=== PATIENT | male | born 1990 | race Caucasian/White ===

== ENCOUNTER 2019-03-02 09:10 | Emergency (ER) | payer BC ==
[~2019-03-02] VITALS: Ht 170.2 cm; Wt 176.9 kg
--- NOTE | 2019-03-02 09:25 | NUR ---
PT AMBULATORY FROM [facility] INTO ER 6. PT AA&OX4. SISTER AT BEDSIDE. PT GOWNED AND PLACED ON MONITOR. HE DENIES ANY CHEST PAIN HE SAYS HE JUST FEELS LIKE HE IS HAVING TROUBLE CATCHING HIS BREATH AND HIS THROAT FEELS FUNNY. SAYS IS MAKING HIS LOWER JAW TINGLE.
[2019-03-02] MEDS ORDERED: DEXAMETHASONE SOD PHOS 10 MG/1 ML VIAL IV ONE (09:45)
[2019-03-02 10:23] LABS: BASOPHILS % 0.2 % (0.0-1.0); EOSINOPHILS # (AUTO) 0.1 (0.0-0.4); EOSINOPHILS % 1.2 % (0.0-6.0); HEMATOCRIT 43.8 % (38.2-49.6); HEMOGLOBIN 14.8 g/dL (14.0-18.0); LYMPHOCYTES # (AUTO) 2.4 (1.0-3.2); LYMPHOCYTES % 29.6 % (18.0-39.1); MEAN CORPUSCULAR HEMOGLOBIN 27.4 pg (28-32); MEAN CORPUSCULAR HGB CONC 33.8 g/dL (31-35); MEAN CORPUSCULAR VOLUME 81.1 fL (81-99); MONOCYTES # (AUTO) 0.5 (0.2-0.8); MONOCYTES % 5.8 % (4.4-11.3); NEUTROPHILS % 62.6 % (38.7-80.0); PLATELET COUNT 244 x10e3/uL (140-360); RED CELL DISTRIBUTION WIDTH 12.3 % (11.7-14.4)
[2019-03-02 10:45] LABS: ALANINE AMINOTRANSFERASE 70 IU/L (0-55); ALBUMIN 3.6 g/dL (3.5-5.0); ALKALINE PHOSPHATASE 88 IU/L (40-150); ANION GAP 11.9 mmol/L (8-16); BLOOD UREA NITROGEN 14 mg/dL (7-26); BUN/CREATININE RATIO 18 (6-25); CALCIUM 9.2 mg/dL (8.4-10.2); CARBON DIOXIDE 25 mmol/L (22-29); CHLORIDE 106 mmol/L (98-107); CREATINE KINASE 101 IU/L (30-200); EST GLOMERULAR FILTRATION RATE > 60 ML/MIN (60-); GLUCOSE 108 mg/dL (74-118); LIPASE 33 U/L (8-78); MAGNESIUM 2.2 MG/DL (1.3-2.1); POTASSIUM 3.9 mmol/L (3.5-5.1); SODIUM 139 mmol/L (136-145)
[2019-03-02 11:17] LABS: BILIRUBIN,URINE NEGATIVE (NEGATIVE); CLARITY,URINE SL CLOUDY (CLEAR); COLOR,URINE YELLOW (YELLOW); KETONES,URINE NEGATIVE (NEGATIVE); LEUKOCYTE ESTERASE ,URINE NEGATIVE (NEGATIVE); NITRITE,URINE NEGATIVE (NEGATIVE); PROTEIN,URINE DIPSTICK NEGATIVE (NEGATIVE); URINE UROBILINOGEN 0.2 mg/dL (0.2 - 1)
[2019-03-02 11:19] LABS: BACTERIA,URINE RARE /HPF
--- NOTE | 2019-03-02 11:30 | Diagnostic Imaging Report ---
Examination: Single AP view of the chest. COMPARISON: None. INDICATION: Shortness of breath DISCUSSION: Lines/tubes: None. Lungs: The lungs are well inflated and clear. No pneumonia or pulmonary edema. Pleura: No pleural effusion or pneumothorax. Heart and mediastinum: The heart and the mediastinum are unremarkable. Bones and soft tissues: No acute bony abnormalities. IMPRESSION: 1. No acute cardiopulmonary abnormalities. Signed by: Dr. Narinder Espinosa M.D. on 03/02/2019 11:27 AM
--- NOTE | 2019-03-02 12:05 | NUR ---
PT SAYS HE IS FEELING A LITTLE BETTER. DR ANNE AT BEDSIDE GIVING PT RESULTS AND DIAGNOSIS. MY DISCHARGE INSTRUCTIONS GIVEN AFTERWARDS. PT AND SISTER BOTH VERB. UNDERSTANDING. FOLLOW UP CARE DISCUSSED. IV REMOVED AND PT BEING DISCHARGED TO HOME
[2019-03-02 14:21] VITALS: BP 138/81
== END 2019-03-02 12:08 | disposition home or self-care (01) ==
LOC: ER 09:10
DX: R00.2 Palpitations (principal); R07.89 Other chest pain; R42 Dizziness and giddiness; F41.1 Generalized anxiety disorder; F17.210 Nicotine dependence, cigarettes, uncomplicated
CPT/HCPCS: 36415; 71045; 80053; 81001; 82550; 82553; 83690; 83735; 84484; 85025; 87086; 93005; 99284; J1100

== ENCOUNTER 2023-08-14 02:26 | Inpatient (IN) | payer BC ==
[2023-08-14] VITALS (51 sets, daily range): BP systolic 121–179; BP diastolic 54–121; PULSE 49–89; RESP 3–26; TEMP 97.5–98.4; O2SAT 67–100
[~2023-08-14] VITALS: Ht 172.7 cm; Wt 194.1 kg
[2023-08-14] MEDS ORDERED: DIGOXIN INJ 0.25 MG/ML 2 ML AMP IV STA (03:05)
[2023-08-14 03:09] LABS: BASOPHILS % 0.4 % (0.0-1.0); EOSINOPHILS # (AUTO) 0.1 (0.0-0.4); EOSINOPHILS % 1.3 % (0.0-6.0); HEMATOCRIT 43.3 % (38.2-49.6); HEMOGLOBIN 14.9 g/dL (14.0-18.0); LYMPHOCYTES # (AUTO) 2.2 (1.0-3.2); LYMPHOCYTES % 30.6 % (18.0-39.1); MEAN CORPUSCULAR HEMOGLOBIN 28.8 pg (28-32); MEAN CORPUSCULAR HGB CONC 34.4 g/dL (31-35); MEAN CORPUSCULAR VOLUME 83.6 fL (81-99); MONOCYTES # (AUTO) 0.5 (0.2-0.8); NEUTROPHILS # (AUTO) 4.3 (2.1-6.9); PLATELET COUNT 233 x10e3/uL (140-360); RED BLOOD COUNT 5.18 x10e6/uL (4.3-5.7); RED CELL DISTRIBUTION WIDTH 12.3 % (11.7-14.4)
[2023-08-14] MEDS ORDERED: AMIODARONE HCL 150 MG/100 ML BAG IV ONE (03:15)
[2023-08-14 03:34] LABS: ALANINE AMINOTRANSFERASE 61 IU/L (0-55); ALBUMIN 3.6 g/dL (3.5-5.0); ALKALINE PHOSPHATASE 77 IU/L (40-150); ANION GAP 12.5 mmol/L (8-16); BILIRUBIN,TOTAL 0.8 mg/dL (0.2-1.2); BLOOD UREA NITROGEN 12 mg/dL (7-26); BUN/CREATININE RATIO 11 (6-25); CALCIUM 8.8 mg/dL (8.4-10.2); CARBON DIOXIDE 27 mmol/L (22-29); CHLORIDE 103 mmol/L (98-107); CREATININE, SERUM 1.12 mg/dL (0.72-1.25); EST GLOMERULAR FILTRATION RATE 90 ML/MIN (>=60); GLUCOSE 90 mg/dL (74-118); POTASSIUM 3.5 mmol/L (3.5-5.1); SODIUM 139 mmol/L (136-145); TOTAL PROTEIN 7.3 g/dL (6.5-8.1)
[2023-08-14] MEDS ORDERED: AMIODARONE HCL 100 ML IV ONE (03:36)
[2023-08-14 03:38] LABS: CREATINE KINASE 77 IU/L (30-200)
[2023-08-14] MEDS ORDERED: AMIODARONE 900MG 500 ML IV ONE (03:42)
[2023-08-14] MEDS: AMIODARONE 900MG 900 MG in Premix Bag 1 BAG IV SCH ×2 (03:45→09:59)
[2023-08-14 03:46] LABS: TROPONIN I < 0.001 ng/mL (0-0.300)
[2023-08-14] MEDS ORDERED: ENOXAPARIN SODIUM INJ 100 MG/ML SYR SC STA (03:59)
[2023-08-14] MEDS ORDERED: ONDANSETRON HCL INJ 2MG/ML 2ML 2 MG/ML VIAL IV PRN (04:00)
[2023-08-14] MEDS ORDERED: Morphine 4mg INJECTION 4 MG/ML INJ IV PRN (04:00)
[2023-08-14] MEDS ORDERED: DOCUSATE SODIUM 100 MG CAP PO PRN ×2 (04:30→06:15)
[2023-08-14] MEDS ORDERED: MAGNESIUM/ALUMINUM/SIMETHICONE 30 ML UDC PO PRN (04:30)
[2023-08-14] MEDS ORDERED: MAGNESIUM SULF 1GRAM/DEXTROSE 100 ML IV ONE (04:30)
[2023-08-14] MEDS ORDERED: MELATONIN 3 MG TAB PO PRN (04:30)
[2023-08-14] MEDS ORDERED: GUAIFENESIN/DEXTROMETHORPHAN LIQD 5 ML UDC PO PRN (04:30)
[2023-08-14] MEDS ORDERED: HYDRALAZINE HCL 20 MG/ML VIAL IV PRN (04:30)
[2023-08-14] MEDS ORDERED: ACETAMINOPHEN 325 MG TAB PO PRN ×2 (04:30→06:15)
[2023-08-14 05:07] LABS: AMPHETAMINES SCREEN,URINE NEGATIVE (NEGATIVE); BENZODIAZEPINES SCREEN,URINE NEGATIVE (NEGATIVE); CANNABINOIDS SCREEN,URINE NEGATIVE (NEGATIVE); METHADONE SCREEN, URINE NEGATIVE (NEGATIVE); OPIATES SCREEN,URINE NEGATIVE (NEGATIVE); PHENCYCLIDINE SCREEN,URINE NEGATIVE (NEGATIVE)
[2023-08-14] MEDS: SODIUM CHLORIDE 0.9% 1000ML 1,000 ML IV SCH ×3 (05:10→20:17)
[2023-08-14] MEDS ORDERED: METOPROLOL TARTRATE INJ 1 MG/ML VIAL IV PRN (06:15)
[2023-08-14] MEDS ORDERED: SIMETHICONE 80 MG CHEW PO PRN (06:15)
[2023-08-14] MEDS ORDERED: ALBUTEROL/IPRATROPIUM 3 ML NEB NEB PRN (06:15)
[2023-08-14] MEDS: POTASSIUM CHLORIDE 20MEQ/100ML 100 ML IV SCH ×2 (06:21→08:16)
[2023-08-14 07:49] LABS: MAGNESIUM 1.8 MG/DL (1.3-2.1); PHOSPHORUS 2.4 MG/DL (2.3-4.7)
[2023-08-14 08:09] LABS: THYROID STIMULATING HORMONE 1.346 uIU/mL (0.350-4.940)
[2023-08-14 08:14] LABS: CHOL/HDL RATIO 6.3 (3.9-4.7)
[2023-08-14] MEDS: ASPIRIN 325 MG TAB PO SCH (08:15)
[2023-08-14] MEDS: METOPROLOL TARTRATE 25 MG TAB PO SCH ×2 (08:15→21:00)
[2023-08-14 10:22] LABS: TROPONIN I 0.003 ng/mL (0-0.300)
[2023-08-14] MEDS: MUPIROCIN 2% OINT 22 GM TUBE TOP SCH ×2 (10:22→22:15)
[2023-08-14 11:53] LABS: ABG HCO3 28 mmol/L (22-26); ABG PCO2 49 mmHg (35-45); ABG PH 7.36 (7.35-7.45); ABG PO2 142 mmHg (80-105); ABG TCO2 29
[2023-08-14] MEDS: ENOXAPARIN SOD INJ 40 MG/0.4 ML SYR SC SCH (17:31)
[2023-08-14] MEDS: AMIODARONE HCL 200 MG TAB PO SCH (20:17)
[2023-08-15] VITALS (31 sets, daily range): BP systolic 109–151; BP diastolic 54–87; PULSE 51–78; RESP 11–29; TEMP 97.7–98.2; O2SAT 92–100
[2023-08-15] MEDS: SODIUM CHLORIDE 0.9% 1000ML 1,000 ML IV SCH (04:09)
[2023-08-15 05:36] LABS: BASOPHILS % 0.3 % (0.0-1.0); EOSINOPHILS # (AUTO) 0.1 (0.0-0.4); EOSINOPHILS % 1.8 % (0.0-6.0); HEMATOCRIT 43.6 % (38.2-49.6); HEMOGLOBIN 14.1 g/dL (14.0-18.0); LYMPHOCYTES # (AUTO) 1.8 (1.0-3.2); LYMPHOCYTES % 24.5 % (18.0-39.1); MEAN CORPUSCULAR HEMOGLOBIN 28.1 pg (28-32); MEAN CORPUSCULAR HGB CONC 32.3 g/dL (31-35); MONOCYTES # (AUTO) 0.4 (0.2-0.8); MONOCYTES % 6.1 % (4.4-11.3); NEUTROPHILS # (AUTO) 4.9 (2.1-6.9); NEUTROPHILS % 66.6 % (38.7-80.0); PLATELET COUNT 208 x10e3/uL (140-360); RED BLOOD COUNT 5.01 x10e6/uL (4.3-5.7); RED CELL DISTRIBUTION WIDTH 12.8 % (11.7-14.4); WHITE BLOOD COUNT 7.27 x10e3/uL (4.8-10.8)
[2023-08-15 05:49] LABS: ALBUMIN 3.5 g/dL (3.5-5.0); ANION GAP 14.1 mmol/L (8-16); BILIRUBIN,TOTAL 0.7 mg/dL (0.2-1.2); CALCIUM 8.9 mg/dL (8.4-10.2); CREATININE, SERUM 0.8 mg/dL (0.72-1.25); POTASSIUM 4.1 mmol/L (3.6-4.7); TOTAL PROTEIN 6.9 g/dL (6.5-8.1)
[2023-08-15 06:27] LABS: TROPONIN I 0.018 ng/mL (0-0.300)
[2023-08-15] MEDS: AMIODARONE HCL 200 MG TAB PO SCH ×2 (09:33→20:17)
[2023-08-15] MEDS: METOPROLOL TARTRATE 25 MG TAB PO SCH ×2 (09:33→21:00)
[2023-08-15] MEDS: ASPIRIN 325 MG TAB PO SCH (09:34)
[2023-08-15] MEDS: MUPIROCIN 2% OINT 22 GM TUBE TOP SCH ×2 (12:05→21:21)
[2023-08-15] MEDS: ENOXAPARIN SOD INJ 40 MG/0.4 ML SYR SC SCH (17:23)
[2023-08-16] VITALS (13 sets, daily range): BP systolic 110; BP diastolic 75; PULSE 49–64; RESP 13–19; TEMP 97; O2SAT 95–100
[2023-08-16] MEDS: ASPIRIN 325 MG TAB PO SCH (08:47)
[2023-08-16] MEDS: AMIODARONE HCL 200 MG TAB PO SCH (08:47)
[2023-08-16] MEDS: MUPIROCIN 2% OINT 22 GM TUBE TOP SCH (10:15)
[2023-08-16] MEDS ORDERED: AMIODARONE HCL100 MG PO ×2 (10:15→10:33)
[2023-08-16] MEDS ORDERED: ATORVASTATIN CA20 MG PO ×2 (10:23→10:33)
[2023-08-16] MEDS ORDERED: LOPRESSOR25 MG PO (10:23)
[2023-08-16] MEDS ORDERED: ASPIRIN EC81 MG PO ×2 (10:23→10:33)
[2023-08-16] MEDS ORDERED: TRICOR145 MG PO ×2 (10:23→10:33)
== END 2023-08-16 11:13 | disposition home or self-care (01) | DRG 309 ==
LOC: ER 02:31 → ERHOLD 03:53 → ICU 04:27
PROVIDERS: ADMIT Internal Medicine; ATTEND Internal Medicine
DX: I47.10 Supraventricular tachycardia, unspecified (principal); J96.11 Chronic respiratory failure with hypoxia; Z68.44 Body mass index [BMI] 60.0-69.9, adult; I47.20 Ventricular tachycardia, unspecified; E66.01 Morbid (severe) obesity due to excess calories; F41.9 Anxiety disorder, unspecified; I10 Essential (primary) hypertension; G47.33 Obstructive sleep apnea (adult) (pediatric); R74.01 Elevation of levels of liver transaminase levels; E11.9 Type 2 diabetes mellitus without complications; E87.6 Hypokalemia; E83.42 Hypomagnesemia; F17.290 Nicotine dependence, other tobacco product, uncomplicated; I11.0 Hypertensive heart disease with heart failure; I50.9 Heart failure, unspecified; R00.1 Bradycardia, unspecified; Z11.52 Encounter for screening for COVID-19; Z79.82 Long term (current) use of aspirin
CPT/HCPCS: 36415; 36600; 71045; 80053; 80061; 80307; 82550; 82805; 83036; 83690; 83735; 83880; 84100; 84443; 84484; 85025; 93005; 93306; 94660; 94799; 99252; 99284; J1160; J1650; J3475; J3480; J7030; U0002